=== PATIENT | male | born 1975 | race Two or more races ===

== ENCOUNTER 2019-02-24 19:06 | Emergency (ER) | payer SELFPAY ==
[~2019-02-24] VITALS: Ht 172.7 cm; Wt 60.8 kg
[2019-02-24 19:12] VITALS: BP 146/82
== END 2019-02-24 19:30 | disposition left against medical advice (07) ==
LOC: EDBD 19:06 → ER 19:10
DX: M25.511 Pain in right shoulder (principal); Z53.21 Procedure and treatment not carried out due to patient leaving prior to being seen by health care provider
CPT/HCPCS: 73030